=== PATIENT | male | born 1940 | race Caucasian/White ===

== ENCOUNTER → 2016-10-25 | Emergency (ER) | payer OTHER ==
[~2016-10-25] MED LIST: SODIUM CHLORIDE 1,000 ML IV STA
[2016-10-25 21:01] VITALS: BP 122/74; PULSE 86; TEMP 97.6; BMI 29.0
[2016-10-25 22:01] LABS: EOSINOPHIL 3.1 % (0-4.5); MCH 29.5 pg (25.7-33.7); MCHC 33.7 g/dl (32.0-35.9); MEAN CELL VOLUME 87.5 fl (80-96); MEAN PLT VOLUME 8.8 fl (7.5-11.1); NEUTROPHILS 57.1 % (42.8-82.8); PLATELET COUNT 229 K/MM3 (134-434); RDW 14.1 % (11.9-15.9); WHITE BLOOD COUNT 4.9 K/mm3 (4.0-10.0)
[2016-10-25 22:22] LABS: INR 0.98 (0.82-1.09); PROTHROMBIN TIME (PATIENT) 10.8 SEC (9.98-11.88)
[2016-10-25 22:32] LABS: ALBUMIN 4.2 g/dl (3.4-5.0); ANION GAP 11 (8-16); BILIRUBIN,TOTAL 0.5 mg/dL (0.2-1.0); CALCIUM 9.2 mg/dL (8.5-10.1); CO2 26 mmol/L (21-32); CREATININE 1.5 mg/dL (0.7-1.3); GLUCOSE,RANDOM 112 mg/dL (74-106); MAGNESIUM 1.7 mg/dL (1.8-2.4); SGOT/AST 21 U/L (15-37); SGPT/ALT 25 U/L (12-78); TOT PROT 7.5 g/dl (6.4-8.2)
[2016-10-25 22:34] LABS: ALK PHOS 125 U/L (45-117); TROPONIN I < 0.02 ng/ml (0.00-0.05)
--- NOTE | 2016-10-25 23:36 | PDOC ---
History of Present Illness - General History Source: Patient Exam Limitations: No Limitations <Jonatan Villatoro - Last Filed: 10/25/16 23:38> - General History Source: Patient, Family, Old Records, Primary Care Provider Exam Limitations: No Limitations - History of Present Illness Initial Comments: 10/25/16 23:43 The patient is a 76 year old male presenting with his , with a significant past medical history of Prostate CA (on radiation therapy), diabetes, HTN, HLD, gastric ulcer and diverticulosis, who presents to the emergency department with shortness of breath last couple of weeks. He reports that minimal movements exacerbate his shortness of breath. He denies any lower extremity swelling. The patient has had a negative nuclear stress test and negative echocardiogram in April 2016. The patient denies chest pain, headache and dizziness. Denies fever, chills, nausea, vomit, diarrhea and constipation. Allergies: None Past surgical history: Neurological surgery Social history: No alcohol, tobacco or drug use reported PMD - Dr. Roxanne Prabhakar Bush Hog Operator - Dr. Сергей Rock Oncologist - [facility] <Syed Horn - Last Filed: 10/25/16 23:44> - General Chief Complaint: Shortness of Breath Stated Complaint: SHORTNESS OF BREATH Time Seen by Provider: 10/25/16 20:55 Past History - Past Medical History Anemia: No Asthma: No Cancer: Yes (prostate) Cardiac Disorders: No CVA: No COPD: No CHF: No Dementia: No Diabetes: Yes (NIIDM) GI Disorders: Yes (GASTRIC ULCER;POLYP-ADENOMA;DIVERTICULOSIS) Disorders: No HTN: Yes Hypercholesterolemia: Yes Liver Disease: No Seizures: No Thyroid Disease: No - Surgical History Abdominal Surgery: No Appendectomy: No Cardiac Surgery: No Cholecystectomy: No Lung Surgery: No Neurologic Surgery: Yes Orthopedic Surgery: No - Psycho/Social/Smoking Cessation Hx Suicidal Ideation: No Smoking History: Never smoked Have you smoked in the past 12 months: No Information on smoking cessation initiated: No Hx Alcohol Use: No Drug/Substance Use Hx: No Substance Use Type: None Hx Substance Use Treatment: No <Jonatan Villatoro - Last Filed: 10/25/16 23:38> <Syed Horn - Last Filed: 10/25/16 23:44> - Past Medical History Allergies/Adverse Reactions: Allergies Allergy/AdvReac Type Severity Reaction Status Date / Time No Known Allergies Allergy Verified 10/25/16 20:56 Home Medications: Ambulatory Orders Metformin HCl [Glucophage -] 500 tab PO BID 04/02/14 Pravastatin Sodium [Pravachol -] 80 tab PO DAILY 04/02/14 Cholecalciferol (Vitamin D3) [Vitamin D3] 2,000 unit PO BID 03/03/16 Lisinopril [Zestril] 2.5 mg PO DAILY 03/03/16 Nizatidine 150 mg PO BID 03/03/16 Bicalutamide [Casodex -] 50 mg PO DAILY 10/25/16 Calcium Carbonate [Calcium] 500 mg PO BID 10/25/16 Duloxetine HCl [Irenka] 40 mg PO DAILY 10/25/16 Tamsulosin HCl [Flomax] 0.4 mg PO DAILY 10/25/16 Review of Systems - Review of Systems Able to Perform ROS?: Yes Comments:: 10/25/16 23:43 GENERAL/CONSTITUTIONAL: No fever or chills. No weakness. HEAD, EYES, EARS, NOSE AND THROAT: No change in vision. No ear pain or discharge. No sore throat. CARDIOVASCULAR: +Shortness of breath. No chest pain RESPIRATORY: No cough, wheezing, or hemoptysis. GASTROINTESTINAL: No nausea, vomiting, diarrhea or constipation. GENITOURINARY: No dysuria, frequency, or change in urination. MUSCULOSKELETAL: No joint or muscle swelling or pain. No neck or back pain. SKIN: No rash NEUROLOGIC: No headache, vertigo, loss of consciousness, or change in strength/ sensation. ENDOCRINE: No increased thirst. No abnormal weight change HEMATOLOGIC/LYMPHATIC: No anemia, easy bleeding, or history of blood clots. ALLERGIC/IMMUNOLOGIC: No hives or skin allergy. <Syed Horn - Last Filed: 10/25/16 23:44> *Physical Exam - Vital Signs Last Vital Signs Temp Pulse Resp BP Pulse Ox 97.6 F 86 16 122/74 96 10/25/16 20:59 10/25/16 20:59 10/25/16 20:59 10/25/16 20:59 10/25/16 20:59 <Jonatan Villatoro - Last Filed: 10/25/16 23:38> - Vital Signs Last Vital Signs Temp Pulse Resp BP Pulse Ox 97.6 F 86 16 122/74 96 10/25/16 20:59 10/25/16 20:59 10/25/16 20:59 10/25/16 20:59 10/25/16 20:59 - Physical Exam Comments: 10/25/16 23:43 GENERAL: Awake, alert, and fully oriented, in no acute distress HEAD: No signs of trauma, normocephalic, atraumatic EYES: PERRLA, EOMI, sclera anicteric, conjunctiva clear ENT: Auricles normal inspection, hearing grossly normal, nares patent, oropharynx clear without exudates. Moist mucosa NECK: Normal ROM, supple, no lymphadenopathy, JVD, or masses LUNGS: No distress, speaks full sentences, clear to auscultation bilaterally HEART: Regular rate and rhythm, normal S1 and S2, no murmurs, rubs or gallops, peripheral pulses normal and equal bilaterally. ABDOMEN: Soft, nontender, normoactive bowel sounds. No guarding, no rebound. No masses EXTREMITIES: Normal inspection, Normal range of motion, no edema. No clubbing or cyanosis. NEUROLOGICAL: Cranial nerves II through XII grossly intact. Normal speech, normal gait, no focal sensorimotor deficits SKIN: Warm, Dry, normal turgor, no rashes or lesions noted. <Syed Horn - Last Filed: 10/25/16 23:44> Heart Score/ECG Review - History History: Moderately suspicious - Electrocardiogram EKG: Normal - Age Age: >/= 65 - Risk Factors Based on the list above the patient has:: No risk factors known - Troponin Troponin: </= normal limit - Score Heart Score - Total: 3 #1 ECG reviewed & interpreted by me at: 23:30 10/25/16 23:34 NSR 81, no std/araceli, normal axis, normal intervals, QTC 441 msec <Jonatan Villatoro - Last Filed: 10/25/16 23:38> ED Treatment Course - LABORATORY CBC & Chemistry Diagram: 10/25/16 21:50 10/25/16 21:50 - ADDITIONAL ORDERS Additional order review: Laboratory Results 10/25/16 10/25/16 10/25/16 21:50 21:50 21:50 INR 0.98 Sodium 141 Potassium 4.1 Chloride 104 Carbon Dioxide 26 Anion Gap 11 BUN 23 H Creatinine 1.5 H Creat Clearance w eGFR 45.62 Random Glucose 112 H Calcium 9.2 Magnesium 1.7 L Total Bilirubin 0.5 AST 21 ALT 25 Alkaline Phosphatase 125 H Creatine Kinase 98 Troponin I < 0.02 B-Natriuretic Peptide 29.69 Total Protein 7.5 Albumin 4.2 10/25/16 21:50 RBC 4.53 MCV 87.5 MCHC 33.7 RDW 14.1 MPV 8.8 Neutrophils % 57.1 Lymphocytes % 30.5 Monocytes % 8.3 Eosinophils % 3.1 Basophils % 1.0 <Jonatan Villatoro - Last Filed: 10/25/16 23:38> - LABORATORY CBC & Chemistry Diagram: 10/25/16 21:50 10/25/16 21:50 - ADDITIONAL ORDERS Additional order review: Laboratory Results 10/25/16 10/25/16 10/25/16 21:50 21:50 21:50 INR 0.98 Sodium 141 Potassium 4.1 Chloride 104 Carbon Dioxide 26 Anion Gap 11 BUN 23 H Creatinine 1.5 H Creat Clearance w eGFR 45.62 Random Glucose 112 H Calcium 9.2 Magnesium 1.7 L Total Bilirubin 0.5 AST 21 ALT 25 Alkaline Phosphatase 125 H Creatine Kinase 98 Troponin I < 0.02 B-Natriuretic Peptide 29.69 Total Protein 7.5 Albumin 4.2 10/25/16 21:50 RBC 4.53 MCV 87.5 MCHC 33.7 RDW 14.1 MPV 8.8 Neutrophils % 57.1 Lymphocytes % 30.5 Monocytes % 8.3 Eosinophils % 3.1 Basophils % 1.0 <Syed Horn - Last Filed: 10/25/16 23:44> Medical Decision Making - Medical Decision Making 10/25/16 23:34 A portion of this note was documented by scribe services under my direction. I have reviewed the details of the note, within reason, and agree with the documentation with the following case summary and management plan written by me. Patient treated in the ED. Nursing notes are reviewed and incorporated into the medical decision-making. Vital signs reviewed. Peripheral IV access obtained by the nurse, laboratory studies are drawn and sent, reviewed and interpreted by myself. Vital Signs Temp Pulse Resp BP Pulse Ox 97.6 F 86 16 122/74 96 10/25/16 20:59 10/25/16 20:59 10/25/16 20:59 10/25/16 20:59 10/25/16 20:59 76-year-old male with past medical history of prostate cancer, last radiation dosing 2 weeks ago at [facility] presents to the emergency department for shortness of breath. The patient is followed by plastics repairer Dr. Сергей Rock. The patient has had a negative nuclear stress test and negative echocardiogram in April 2016. In the last several weeks, the patient was complaining about dyspneic on exertion that has progressively worsened. The patient denies any cardiac history. He has noted that short of breath has been somewhat worse than usual. Denies fevers, chills, cough. The patient was sent in by the plastics repairer for rule out pulmonary embolism. I agree with plan to rule out pulmonary embolism. One blood work returned, the patient's creatinine is 1.5. According to the radiology department, upper limit for IV contrast studies is 1.3. Given these findings, I had discussed the potential to admit for VQ scan. However, the patient was adamant and does not want to be admitted. I had discussed the case with Dr. Rock. Given that the patient's symptoms are chronic for the last several weeks, we had agreed that the patient can have an outpatient VQ scan. Dr. Rock reports that he will attempt to arrange outpatient scan in the next several days. Return precautions given. Patient's at bedside who agrees with plan. I discussed the physical exam findings, ancillary test results and final diagnoses with the patient. I answered all of the patient's questions. The patient was satisfied with the care received and felt comfortable with the discharge plan and treatment plan. The patient will call their primary care physician within 24 hours to arrange follow-up and will return to the Emergency Department with any new, persistant or worsening symptoms. <Jonatan Villatoro - Last Filed: 10/25/16 23:38> - Medical Decision Making 10/25/16 23:43 Dr. Сергей Rock was called regarding the patient at 11:10pm Dr. Rock was consulted regarding the patient at 11:15pm [phone] <Syed Horn - Last Filed: 10/25/16 23:44> *DC/Admit/Observation/Transfer - Discharge Dispostion Admit: No <Jonatan Villatoro - Last Filed: 10/25/16 23:38> - Attestations Scribe Attestion: 10/25/16 23:43 Documentation prepared by Syed Horn, acting as durable medical equipment technician for Jonatan Villatoro MD <Syed Horn - Last Filed: 10/25/16 23:44> Diagnosis at time of Disposition: Shortness of breath - Referrals Referrals: Roxanne Prabhakar [Primary Care Provider] - Сергей Rock MD [Staff Physician] - - Patient Instructions Printed Discharge Instructions: DI for Shortness of Breath Additional Instructions: Please bring a copy of the ECG and blood work to Dr. Rock tomorrow. You will need a V/Q scan to rule out pulmonary embolism. Please call tomorrow to schedule an appointment. It is very important that if you develop chest pain or worsening shortness of breath to return to the ER for further evaluation.
--- NOTE | 2016-10-26 16:07 | EKG ---
Test Reason : Blood Pressure : / mmHG Vent. Rate : 081 BPM Atrial Rate : 081 BPM P-R Int : 154 ms QRS Dur : 102 ms QT Int : 380 ms P-R-T Axes : 067 052 051 degrees QTc Int : 441 ms POOR DATA QUALITY, INTERPRETATION MAY BE ADVERSELY AFFECTED SINUS RHYTHM Confirmed by LETITIA COPELAND, DAVID ([id number]) on 10/26/2016 4:07:32 PM Referred By: MD PLACIDO Confirmed By:DAVID DONG MD
== END | disposition home or self-care (01) ==
LOC: JER 20:04
DX: R06.02 Shortness of breath (principal); C80.1 Malignant (primary) neoplasm, unspecified; E11.9 Type 2 diabetes mellitus without complications; I10 Essential (primary) hypertension; E78.5 Hyperlipidemia, unspecified
CPT/HCPCS: 36415; 80053; 82550; 83735; 83880; 84484; 85025; 85610; 93005; 93010; 99281-25

== ENCOUNTER 2018-02-27 07:03 | Day surgery (SDC) | payer OTHER ==
[2018-02-26 11:19] VITALS: BMI 26.7
[2018-02-27] MEDS ORDERED: LIDOCAINE HCL 2% (20ML MULTI-DOSE VIAL) NR ONE (07:40)
[2018-02-27] MEDS ORDERED: PROPOFOL 20 ML ONE ×3 (07:40)
[2018-02-27 08:35] VITALS: TEMP 98
[2018-02-27 09:38] VITALS: PULSE 68
[2018-02-27 09:39] VITALS: BP 128/66
--- NOTE | 2018-02-28 09:58 | PATH ---
Surgical Pathology Report Patient Name: CECILIA DONIS [facility]. Rec. #: [id number] /Age/Gender: 1940 (Age: 77) / M Account: [id number] Location: U-ENDOSCOPY Taken: 02/27/2018 Received: 02/27/2018 Reported: 02/28/2018 Physicians: Asiya De Souza M.D. Specimen(s) Received A: POLYP RIGHT COLON B: BX CECA L POLYP C: BX DESCENDING COLON POLYP Clinical History History of sigmoid polyp, adenoma surveillance, family history of colon cancer Postoperative diagnosis: Colon polyps, diverticulosis Final Diagnosis A. RIGHT COLON POLYP, POLYPECTOMY: TUBULAR ADENOMA. B. CECAL POLYP, BIOPSY: COLONIC MUCOSA WITH LYMPHOID AGGREGATE. C. DESCENDING COLON POLYP, POLYPECTOMY: TUBULAR ADENOMA. Electronically Signed Ashvin Sandhu M.D. Gross Description A. Received in formalin, labeled "polyp right colon" is a luque, irregular portion of soft tissue measuring 0.4 cm. in greatest dimension. The specimen is submitted in toto in one cassette. B. Received in formalin, labeled "biopsy cecal polyp" are 2 luque, irregular portions of soft tissue measuring 0.2 and 0.3 cm. in greatest dimension. The specimens are submitted in toto in one cassette. C. Received in formalin, labeled "biopsy descending colon polyp" are 3 luque, irregular portions of soft tissue ranging from 0.2-0.5 cm. in greatest dimension. The specimens are submitted in toto in one cassette. /02/27/2018 saudi/02/27/2018
== END 2018-02-27 09:30 | disposition home or self-care (01) ==
LOC: JASU-ENDO 07:03
PROVIDERS: ATTEND Internal Medicine Gastroenterology
PROC: 0DBL8ZX Excision of Transverse Colon, Via Natural or Artificial Opening Endoscopic, Diagnostic (ICD-10-PCS; 2018-02-27)
PROC: 0DBH8ZX Excision of Cecum, Via Natural or Artificial Opening Endoscopic, Diagnostic (ICD-10-PCS; 2018-02-27)
PROC: 0DBM8ZX Excision of Descending Colon, Via Natural or Artificial Opening Endoscopic, Diagnostic (ICD-10-PCS; 2018-02-27)
PROC: 0DBK8ZX Excision of Ascending Colon, Via Natural or Artificial Opening Endoscopic, Diagnostic (ICD-10-PCS; principal; 2018-02-27 08:00)
DX: Z12.11 Encounter for screening for malignant neoplasm of colon (principal); Z86.010 Personal history of colon polyps; Z80.0 Family history of malignant neoplasm of digestive organs; D12.2 Benign neoplasm of ascending colon; D12.0 Benign neoplasm of cecum; D12.4 Benign neoplasm of descending colon; D12.3 Benign neoplasm of transverse colon; K64.8 Other hemorrhoids; K57.30 Diverticulosis of large intestine without perforation or abscess without bleeding
CPT/HCPCS: 88305-TC

== ENCOUNTER 2021-06-20 04:38 | Day surgery (SDC) | payer OTHER ==
[2021-06-15 15:16] VITALS: BMI 28.6
[2021-06-20 09:45] VITALS: TEMP 98
[2021-06-20 10:52] VITALS: BP 128/75; PULSE 63
== END 2021-06-20 10:45 | disposition home or self-care (01) ==
LOC: JASU-ENDO 04:38
PROVIDERS: ATTEND Internal Medicine Gastroenterology
PROC: 0DBH8ZX Excision of Cecum, Via Natural or Artificial Opening Endoscopic, Diagnostic (ICD-10-PCS; principal; 2021-06-20 09:21)
DX: Z12.11 Encounter for screening for malignant neoplasm of colon (principal); D12.0 Benign neoplasm of cecum; K64.8 Other hemorrhoids; K57.30 Diverticulosis of large intestine without perforation or abscess without bleeding; I10 Essential (primary) hypertension; E11.9 Type 2 diabetes mellitus without complications; Z79.4 Long term (current) use of insulin; Z86.010 Personal history of colon polyps; Z80.0 Family history of malignant neoplasm of digestive organs
CPT/HCPCS: 88305-TC